=== PATIENT | female | born 1990 | race Caucasian/White ===

== ENCOUNTER 2016-04-23 17:28 | Outpatient (CLI) | payer OTHER ==
[~2016-04-23] VITALS: Ht 165.1 cm; Wt 150.0 kg
[2016-04-23] MEDS ORDERED: PRENATAL1 TA7 PO (17:41)
[2016-04-23 18:00] VITALS: BP 135/78; PULSE 83; TEMP 97.7
[2016-04-23 18:20] VITALS: BP 138/62; PULSE 82
== END 2016-04-23 18:25 | disposition home or self-care (01) ==
LOC: LDRO 17:28
DX: O36.8130 Decreased fetal movements, third trimester, not applicable or unspecified (principal); Z3A.30 30 weeks gestation of pregnancy

== ENCOUNTER 2016-06-24 09:10 | Inpatient (IN) | payer OTHER ==
[~2016-06-24] VITALS: Ht 165.1 cm; Wt 155.9 kg
[2016-06-24] VITALS (17 sets, daily range): BP systolic 115–140; BP diastolic 68–89; PULSE 64–969; TEMP 96.9–98.1
[~2016-06-24 09:10] MED LIST: PRENATAL1 TA7 PO
[2016-06-24 10:17] LABS: BASO % 0.2 % (0.0-2.0); EOS # 0.1 (0.0-0.7); GRAN # 5.3 (1.4-6.5); GRAN % 63.6 % (42.2-75.2); LYMPH # 2.2 (1.2-3.4); LYMPH % 26.9 % (20.0-51.0); MEAN CELL VOLUME 90 fl (80.0-100.0); MEAN CORPUSCULAR HGB CONC 34 g/dl (33.0-37.0); MEAN PLATELET VOLUME 11.4 fl (7.4-10.4); MONO # 0.7 (0.1-0.6); MONO % 8.1 % (1.7-9.3); PLATELET COUNT 209 K/mm3 (130-400); RED BLOOD COUNT 3.88 M/mm3 (4.10-5.30); REDCELL DISTRIBUTION WIDTH-CV 13.5 % (11.5-14.5); WHITE BLOOD COUNT 8.3 K/mm3 (4.8-10.8)
[2016-06-24 10:18] LABS: HEMATOCRIT 34.8 % (37.0-47.0); HEMOGLOBIN 11.7 g/dl (12.5-16.0); MEAN CORPUSCULAR HEMOGLOBIN 30 pg (27.0-31.0)
[2016-06-25 00:30] VITALS: BP 136/93; PULSE 115; TEMP 97.6
[2016-06-25 06:45] VITALS: BP 130/83; PULSE 91; TEMP 97.8
[2016-06-25 11:17] LABS: HEMOGLOBIN 10.4 g/dl (12.5-16.0)
[2016-06-25 16:50] VITALS: BP 141/86; PULSE 83; TEMP 98.4
[2016-06-25 19:42] VITALS: BP 137/79; PULSE 86; TEMP 98.4
[2016-06-26 08:08] VITALS: BP 137/79; PULSE 86; TEMP 97.8
[2016-06-26] MEDS ORDERED: PERCOCET 325 MG1 TA2 PO (09:29)
[2016-06-26] MEDS ORDERED: IBU600 MG PO (09:29)
== END 2016-06-26 10:55 | disposition home or self-care (01) | DRG 765 ==
LOC: OB 09:10
PROVIDERS: Obstetrics & Gynecology
PROC: 10D00Z1 Extraction of Products of Conception, Low, Open Approach (ICD-10-PCS; principal; 2016-06-24)
DX: O36.63X0 Maternal care for excessive fetal growth, third trimester, not applicable or unspecified (principal); O13.3 Gestational [pregnancy-induced] hypertension without significant proteinuria, third trimester; O99.824 Streptococcus B carrier state complicating childbirth; Z3A.39 39 weeks gestation of pregnancy; Z37.0 Single live birth
CPT/HCPCS: A9284; J0690; J1885; J2270; J2370; J2405; J2590; J2765; J3010; J7120

== ENCOUNTER 2016-07-10 22:21 | Emergency (ER) | payer OTHER ==
[~2016-07-10] VITALS: Ht 165.1 cm; Wt 144.5 kg
[~2016-07-10 22:21] MED LIST changes: +IBU600 MG PO; +PERCOCET 325 MG1 TA2 PO
[2016-07-10 22:36] VITALS: TEMP 98.3
[2016-07-10 23:46] LABS: PH 5 (5-8); SQUAMOUS EPITHELIAL 0-2 /hpf; URINE APPEARANCE Clear; URINE BACTERIA None Seen /hpf; URINE BILIRUBIN Negative (NEGATIVE); URINE BLOOD 3+ (NEGATIVE); URINE COLOR Yellow; URINE GLUCOSE Negative (NEGATIVE); URINE KETONE Trace (NEGATIVE); URINE RBC 0-2 /hpf; URINE UROBILINOGEN Negative (NEGATIVE)
[2016-07-11] MEDS ORDERED: NEXIUM 20MG20 MG PO (00:19)
[2016-07-11 00:25] VITALS: BP 124/72; PULSE 88
== END 2016-07-11 00:25 | disposition home or self-care (01) ==
LOC: COL.ER 22:21
PROVIDERS: Nurse Practitioner
DX: R10.13 Epigastric pain (principal); Z98.890 Other specified postprocedural states